=== PATIENT | female | born 1995 | race Caucasian/White ===

== ENCOUNTER 2021-02-06 10:24 | Inpatient (IN) | payer MEDICARE, MEDICAID ==
[2021-02-06] VITALS (9 sets, daily range): BP systolic 93–126; BP diastolic 45–98
[~2021-02-06] VITALS: Ht 144.8 cm; Wt 86.4 kg
[2021-02-06] MEDS ORDERED: DOCU-163 PO (11:07)
[2021-02-06] MEDS ORDERED: ONDN4T PO (11:07)
[2021-02-06] MEDS ORDERED: PREN-37 PO (11:07)
[2021-02-06] MEDS ORDERED: TERBUTALINE INJ 1 MG/ML (BRETHINE) AMP SC ONE (12:00)
[2021-02-06] MEDS ORDERED: TERBUTALINE INJ 1 MG/ML (BRETHINE) AMP ONE (12:09)
[2021-02-06] MEDS ORDERED: OXYTOCIN PRE-MIX DRIP 1,000 ML IV ONE (12:32)
[2021-02-06] MEDS ORDERED: fentaNYL INJ 100 MCG/2 ML AMP ONE (12:33)
[2021-02-06] MEDS ORDERED: FAMOTIDINE 20MG/2ML IV (PEPCID) ONE (12:35)
[2021-02-06] MEDS ORDERED: CITRIC ACID/SOB CIT (BICITRA) 30 ML UDC ONE (12:35)
[2021-02-06] MEDS ORDERED: METOCLOPRAMIDE INJ 10 MG/2 ML (REGLAN) ONE (12:35)
[2021-02-06] MEDS ORDERED: ceFAZolin 2 GM IV Premixed 50 ML ONE (12:36)
[2021-02-06] MEDS ORDERED: metroNIDAZOLE 500MG/100ML IVPB 100 ML ONE (12:36)
--- NOTE | 2021-02-06 12:38 | History & Physical-OB ---
OB - Chief Complaint & HPI Date/Time Date of Admission: Date of Admission: Feb 06, 2021 at 12:31 Date seen by a Provider: Feb 06, 2021 Time Seen by a Provider: 12:15 Chief Complaint/History OB-Reason for Admission/Chief: Onset of Labor Hx : 3 Hx Para: 2 Expected Date of Delivery: Feb 18, 2021 Gestational Age in Weeks: 38 Gestational Age in Days: 2 Indication for : other (Previous section in labor) Admission Nurse Assessment Rev: Yes History of Labs Negative Allergies and Home Medications Allergies Coded Allergies: No Known Drug Allergies (Unverified , 02/06/21) Patient Home Medication List Home Medication List Reviewed: Yes Docusate Sodium (Dulcolax Stool Softener) 100 Mg Capsule, 100 MG PO DAILY, (Reported) Entered as Reported by: OMAR HARP on 02/06/211106 Last Action: New Order Ondansetron HCl (Zofran) 4 Mg Tab, 4 MG PO for NAUSEA-1ST LINE, (Reported) Entered as Reported by: OMAR HARP on 02/06/211106 Last Action: New Order Vit/Iron Fumarate/FA ( Tablet) 1 Each Tablet, 1 EACH PO DAILY, (Reported) Entered as Reported by: OMAR HARP on 02/06/211106 Last Action: New Order OB - History Hx of Present Care: Yes Ultrasounds: Normal mid trimester US Obstetrical Complications: None Medical Complications: None Obstetrical History Hx : 3 Hx Para: 2 Hx Total # of Abortions (Spona: 0 Patient Past Medical History 2 previous sections 2014 2018 Social History/Family History Alcohol Use: Denies Use Recreational Drug Use: No OB - Admission Exam Physical Exam Vitals: Vital Signs 02/06/21 11:09 Temp 36.5 Pulse 79 Resp 20 Pulse Ox 99 O2 Delivery Room Air HEENT: Moist Membranes Heart: Rhythm Normal Lungs: Clear Cervical Dilatation: 1cm Effacement: 50% Station: -3 Membranes: Intact Accelerations: Accelerations Present Short Term Variability: Present Contractions on Admission: >10 Minutes Apart Intensity: Moderate OB - Assessment/Plan/Diagnosis Assessment Assessment: active labor (With history of previous section) Admission Dx 1. Intrauterine at 38 weeks 2 days gestation in labor 2. Previous section x2 Admission Status: Inpatient Order (span 2 midnights) Reason for Inpatient Admission: Repeat section Plan Plan: Section Other Plan Dr. Treviño notified as well the surgery crew. -Plan on repeat during the afternoon of February 06, 2021 RICCO ORTEGA MD Feb 06, 2021 12:38
[2021-02-06 12:42] LABS: BASOPHILS % (AUTO) 0 % (0-10); EOSINOPHILS % (AUTO) 0 % (0-10); HEMATOCRIT 38 % (35-52); HEMOGLOBIN 12.8 g/dL (11.5-16.0); LYMPHOCYTES # (AUTO) 3.2 10^3/uL (1.0-4.0); LYMPHOCYTES % (AUTO) 23 % (12-44); MEAN CORPUSCULAR HEMOGLOBIN 28 pg (25-34); MEAN CORPUSCULAR HGB CONC 33 g/dL (32-36); MEAN CORPUSCULAR VOLUME 85 fL (80-99); MEAN PLATELET VOLUME 10.4 fL (9.0-12.2); MONOCYTES # (AUTO) 0.5 10^3/uL (0.0-1.0); MONOCYTES % (AUTO) 3 % (0-12); NEUTROPHILS # (AUTO) 10.1 10^3/uL (1.8-7.8); NEUTROPHILS % (AUTO) 73 % (42-75); PLATELET COUNT 259 10^3/uL (130-400); WHITE BLOOD COUNT 13.9 10^3/uL (4.3-11.0)
[2021-02-06] MEDS ORDERED: BUPIVACAINE 0.25% 30 ML (SENSORCAINE) VIAL ONE (12:43)
[2021-02-06] MEDS ORDERED: LACTATED RINGERS 1,000 ML IV PRN (13:30)
[2021-02-06] MEDS ORDERED: ONDANSETRON 4 MG/2 ML (SDV) Z0FRAN ONE (13:30)
[2021-02-06] MEDS ORDERED: KETOROLAC 30 MG/ML VIAL ONE (13:50)
[2021-02-06] MEDS ORDERED: D5 LR IV SOLUTION 1,000 ML IV SCH (14:00)
[2021-02-06] MEDS ORDERED: TETANUS,DIPTH,PERTUSS P/F (BOOSTRIX) 0.5 ML VIAL IM ONE (14:00)
[2021-02-06] MEDS ORDERED: MEASLES,MUMPS,RUBELLA 1 EA INJ SC ONE (14:00)
[2021-02-06] MEDS ORDERED: DOCU-143 PO (14:04)
[2021-02-06] MEDS ORDERED: IBUP-1780 PO (14:04)
--- NOTE | 2021-02-06 14:05 | Discharge Inst-Surgical ---
Discharge Inst-Surgical Depart Medication/Instructions New, Converted or Re-Newed RX: Call to Patients Pharmacy Consults/Follow Up Patient Instructions: As directed Orders & Referrals Follow Up Appt: RTC 1 week for incision check With Dr. Treviño. Call to make follow up appt. for patient in [address] Paz. Wound Care: Remove pat, apply benzoin and steri strips. Activity Per routine post instructions. Please call in RX to patient pharmacy. Diet as tolerated Patient may shower or tub bathe as desired. Continue home meds Activity Activity as Tolerated: No Diet Discharge Diet: No Restrictions EVANGELINA TREVIÑO MD Feb 06, 2021 14:05
[2021-02-06] MEDS ORDERED: LACTATED RINGERS 1,000 ML IV SCH ×2 (14:30)
[2021-02-06] MEDS ORDERED: CITRIC ACID/SOB CIT (BICITRA) 30 ML UDC PO ONE (14:30)
[2021-02-06] MEDS ORDERED: NALOXONE 0.4 MG/ML 1 ML (NARCAN) VIAL IV PRN ×2 (14:30)
[2021-02-06] MEDS ORDERED: METOCLOPRAMIDE INJ 10 MG/2 ML (REGLAN) IV ONE (14:30)
[2021-02-06] MEDS ORDERED: METOCLOPRAMIDE INJ 10 MG/2 ML (REGLAN) IV PRN (14:30)
[2021-02-06] MEDS ORDERED: diphenhydrAMINE 50 MG/ML INJ (BENADRYL) IV PRN (14:30)
[2021-02-06] MEDS ORDERED: ONDANSETRON 4 MG/2 ML (SDV) Z0FRAN IV PRN (14:30)
[2021-02-06] MEDS ORDERED: FAMOTIDINE 20MG/2ML IV (PEPCID) IV ONE (14:30)
[2021-02-06] MEDS: OXYTOCIN PRE-MIX DRIP 500 ML IV SCH ×2 (15:14→18:00)
[2021-02-06] MEDS: ACETAMINOPHEN 500 MG TAB (TYLENOL) PO SCH ×2 (17:21→23:11)
[2021-02-06] MEDS ORDERED: KETOROLAC 30 MG/ML VIAL IV SCH (18:00)
[2021-02-06] MEDS: DOCUSATE SODIUM 100 MG (COLACE) CAP PO SCH (20:53)
--- NOTE | 2021-02-06 21:53 | OPERATIVE REPORT ---
DATE OF SERVICE: 02/06/2021 DIRECTOR OF ELEMENTARY EDUCATION: Dr. Paz. PREOPERATIVE DIAGNOSIS: Term at 38 weeks' gestation in labor with two previous sections. POSTOPERATIVE DIAGNOSIS: Term at 38 weeks' gestation in labor with two previous sections. OPERATIVE PROCEDURE: Repeat low transverse delivery of a viable male with Apgars of 8 and 9 at 1 and 5 minutes respectively, weight of 5 pounds 10 ounces. time of 1325 and a cord blood pH of 7.29. OPERATIVE DESCRIPTION: With the patient in the supine position under satisfactory spinal analgesia, she was prepped and draped in the usual fashion for abdominal surgery. The patient had a large panniculus that was retracted by placing towel clips in the upper portion of the lower quadrant on each side and then attaching that to the posts at the top of the bed to retract the panniculus and expose the lower abdomen. With that done, a Pfannenstiel incision was made through the skin with a scalpel at the site of the patient's previous two Pfannenstiel incisional scars. The abdomen was entered in the usual manner. Bladder retractor placed in position. A clean scalpel used to make a 4 cm hysterotomy incision transversely across the lower uterine segment. Very scant fluid was released on hysterotomy. A vigorous viable male infant with Apgars and stats as noted above was delivered via the uterine incision in the usual manner. The was bulb suctioned on delivery of the head and again on completion of delivery. Umbilical cord was doubly clamped, and the taken to the warmer by Dr. Paz, the book retailer in attendance for delivery. The placenta was delivered spontaneously after obtaining cord bloods. The placenta was normal with a 3-vessel cord. The uterus was exteriorized and interior wiped clean with a wet laparotomy sponge. Uterine incision then closed with a running locked suture of 2-0 Vicryl. This was done in two layers to good hemostasis and good reapproximation. The uterus was now returned to the abdominal cavity. All blood clot and debris removed from the abdominal cavity. With sponge and needle counts correct and hemostasis assured, the anterior parietal peritoneum was closed with running suture of 2-0 Vicryl. Rectus muscles were closed with that suture as well. The rectus fascia was closed with 2-0 Vicryl, subcutaneous tissue was closed with 2-0 Vicryl and the skin was stapled. Sponge and needle counts were correct on completion of the procedure. Blood loss was around 300 mL. The patient tolerated the procedure well and was transferred to the recovery room in stable condition. The had been taken stable to the full-term nursery by Dr. Paz. Job ID: [id number] DocumentID: [id number] Dictated Date: 02/06/2021 13:55:03 Child And Family Services Worker Date: 02/06/2021 21:52:41 Dictated By: EVANGELINA LINARES MD
[2021-02-06] MEDS ORDERED: CALCIUM CARBONATE 500 MG (TUMS) TAB.CHEW ONE (23:10)
[2021-02-06] MEDS ORDERED: CALCIUM CARBONATE 500 MG (TUMS) TAB.CHEW PO PRN (23:15)
[2021-02-07] MEDS ORDERED: IBUPROFEN 800 MG (MOTRIN) TAB PO ONE ×2 (03:58→09:30)
[2021-02-07 04:00] VITALS: BP 104/59
[2021-02-07] MEDS: IBUPROFEN 800 MG (MOTRIN) TAB PO SCH ×3 (04:00→17:38)
[2021-02-07] MEDS: ACETAMINOPHEN 500 MG TAB (TYLENOL) PO SCH ×3 (06:36→20:45)
--- NOTE | 2021-02-07 09:06 | Progress Note ---
Standard Progress Note Progress Notes/Assess & Plan Date Seen by a Provider: Feb 07, 2021 Time Seen by a Provider: 09:05 Progress/Assessment & Plan This patient is without complaint. She is ambulating, voiding, tolerating oral intake well and has good pain control. Patient denies chest pain, denies shortness of breath, denies nausea vomiting, and denies headache. Vital Signs 02/06/21 02/07/21 14:56 04:00 Temp 36.0 Pulse 50 Resp 18 B/P (MAP) 104/59 (74) Pulse Ox 98 O2 Delivery Room Air O2 Flow Rate 0.00 Vital signs are stable. Patient is afebrile. The abdomen is benign. The surgical incision is clean dry and intact. Extremities show no clubbing or cyanosis. There is no Homans' sign. Assessment and plan Postoperative day #1 status post repeat delivery at 38 weeks gestation. Patient is doing well and will have routine convalescent care Final Diagnosis 38-week repeat delivery EVANGELINA LINARES MD Feb 07, 2021 09:06
[2021-02-07] MEDS ORDERED: OXC5T PO (09:08)
[2021-02-07] MEDS ORDERED: DOCU-163 PO (09:08)
[2021-02-07] MEDS ORDERED: IBUP-1780 PO (09:08)
[2021-02-07 09:27] VITALS: BP 95/56
[2021-02-07] MEDS: DOCUSATE SODIUM 100 MG (COLACE) CAP PO SCH ×2 (09:31→20:45)
[2021-02-07 10:47] LABS: AMPHETAMINE SCREEN, URINE NEGATIVE (NEGATIVE); BARBITURATE SCREEN URINE NEGATIVE (NEGATIVE); BENZODIAZEPINES SCREEN URINE NEGATIVE (NEGATIVE); CANNABINOID SCREEN, URINE POSITIVE (NEGATIVE); COCAINE SCREEN URINE NEGATIVE (NEGATIVE); METHADONE STAT NEGATIVE (NEGATIVE); METHAMPHETAMINE SCREEN URINE S NEGATIVE (NEGATIVE); OPIATE SCREEN URINE NEGATIVE (NEGATIVE); OXYCODONE STAT POSITIVE (NEGATIVE); PROPOXYPHENE STAT NEGATIVE (NEGATIVE); TRICYCLIC ANTIDEPRESSANTS SCRE NEGATIVE (NEGATIVE)
--- NOTE | 2021-02-07 13:00 | Anesthesia-Regional Post-Op ---
Regional Patient Condition Mental Status: Alert, Oriented x3 Circulation: Same as Pre-Op Headache: Absent Sensation: Full Recovery Motor Block: Absent Post Op Complications Complications None Follow Up Care/Instructions Patient Instructions None needed. Anesthesia/Patient Condition Patient is doing well, no complaints, stable vital signs, no apparent adverse anesthesia problems. No complications reported per nursing. JAMISON ARRIAZA CRNA Feb 07, 2021 13:00
[2021-02-07 13:12] VITALS: BP 122/80
[2021-02-07] MEDS ORDERED: SIMETHICONE 40 MG/0.6 ML (MYLICON DROPS) 30 ML BTL PO PRN (16:15)
[2021-02-07] MEDS ORDERED: SIMETHICONE 80 MG (MYLICON) CHEW PO PRN (16:15)
[2021-02-07 17:40] VITALS: BP 145/84
[2021-02-08 00:10] VITALS: BP 115/73
[2021-02-08] MEDS: IBUPROFEN 800 MG (MOTRIN) TAB PO SCH ×3 (01:07→13:33)
[2021-02-08] MEDS: ACETAMINOPHEN 500 MG TAB (TYLENOL) PO SCH ×2 (03:39→13:33)
[2021-02-08 06:30] VITALS: BP 122/70
[2021-02-08 09:08] VITALS: BP 125/72
[2021-02-08] MEDS: DOCUSATE SODIUM 100 MG (COLACE) CAP PO SCH (09:09)
== END 2021-02-08 18:40 | disposition home or self-care (01) | DRG 788 ==
LOC: WSo 10:24 → LDRP 10:25 → WSo 12:31 → LDRP 12:31
PROVIDERS: ADMIT Obstetrics & Gynecology; ATTEND Obstetrics & Gynecology
PROC: 10D00Z1 Extraction of Products of Conception, Low, Open Approach (ICD-10-PCS; principal; 2021-02-06 13:03)
DX: O34.211 Maternal care for low transverse scar from previous cesarean delivery (principal); Z3A.38 38 weeks gestation of pregnancy; Z37.0 Single live birth
CPT/HCPCS: 36415; 80306; 85025; 86850; 86900; 86901; 99212

== ENCOUNTER → 2022-05-06 | Outpatient (CLI) | payer MEDICARE, MEDICAID ==
[~2022-05-06] MED LIST: DOCU-143 PO; DOCU-163 PO; IBUP-1780 PO; ONDN4T PO; OXC5T PO; PREN-37 PO
== END | disposition home or self-care (01) ==
LOC: PREOP 05:31
PROVIDERS: ATTEND Obstetrics & Gynecology
DX: Z01.818 Encounter for other preprocedural examination (principal)

== ENCOUNTER 2022-05-09 23:47 | Outpatient (CLI) | payer MEDICARE, MEDICAID ==
[~2022-05-09] VITALS: Ht 152.4 cm; Wt 86.1 kg
[2022-05-10] VITALS: BP 125/68
[2022-05-10 00:46] LABS: CLARITY,URINE CLOUDY; COLOR,URINE DARK YELLOW; GLUCOSE, URINE (UA) NEGATIVE (NEGATIVE); KETONES,URINE NEGATIVE (NEGATIVE); LEUKOCYTE ESTERASE ,URINE NEGATIVE (NEGATIVE); NITRITE,URINE NEGATIVE (NEGATIVE); PROTEIN,URINE TRACE (NEGATIVE)
[2022-05-10 01:01] LABS: BACTERIA,URINE TRACE /HPF; RBC,URINE RARE /HPF; WBC,URINE RARE /HPF
[2022-05-10 01:02] LABS: BILIRUBIN,URINE 1+ (NEGATIVE)
[2022-05-10] MEDS ORDERED: NS IV 1000 ML 1,000 ML ONE (01:29)
[2022-05-10] MEDS ORDERED: NS IV 1000 ML 1,000 ML IV SCH (01:30)
[2022-05-10] MEDS ORDERED: CALCIUM CARBONATE 500 MG (TUMS) TAB.CHEW PO ONE (01:30)
[2022-05-10] MEDS ORDERED: ONDANSETRON 4 MG/2 ML (SDV) Z0FRAN ONE (01:40)
[2022-05-10 02:25] LABS: BASOPHILS % (AUTO) 0 % (0-10); EOSINOPHILS % (AUTO) 0 % (0-10); HEMATOCRIT 34 % (35-52); HEMOGLOBIN 11.1 g/dL (11.5-16.0); LYMPHOCYTES # (AUTO) 2.5 10^3/uL (1.0-4.0); LYMPHOCYTES % (AUTO) 19 % (12-44); MEAN CORPUSCULAR HEMOGLOBIN 27 pg (25-34); MEAN CORPUSCULAR HGB CONC 33 g/dL (32-36); MEAN CORPUSCULAR VOLUME 83 fL (80-99); MONOCYTES # (AUTO) 0.5 10^3/uL (0.0-1.0); MONOCYTES % (AUTO) 4 % (0-12); NEUTROPHILS # (AUTO) 9.8 10^3/uL (1.8-7.8); NEUTROPHILS % (AUTO) 76 % (42-75); PLATELET COUNT 233 10^3/uL (130-400); WHITE BLOOD COUNT 12.8 10^3/uL (4.3-11.0)
[2022-05-10 02:38] LABS: ALBUMIN 2.7 GM/DL (3.2-4.5); BILIRUBIN,TOTAL 0.3 MG/DL (0.1-1.0); CALCIUM 7.8 MG/DL (8.5-10.1); CREATININE SERUM 0.62 MG/DL (0.60-1.30); POTASSIUM 3.3 MMOL/L (3.6-5.0); TOTAL PROTEIN 5.6 GM/DL (6.4-8.2); URIC ACID 5.1 MG/DL (2.6-7.2)
[2022-05-10] MEDS ORDERED: D5 LR IV SOLUTION 1,000 ML IV ONE (03:13)
[2022-05-10] MEDS ORDERED: FAMOTIDINE 20MG/2ML IV (PEPCID) IVP ONE (03:15)
[2022-05-10] MEDS ORDERED: ONDANSETRON 4 MG/2 ML (SDV) Z0FRAN IVP PRN (03:15)
[2022-05-10] MEDS ORDERED: CITRIC ACID/SOB CIT (BICITRA) 30 ML UDC PO ONE (03:15)
[2022-05-10] MEDS ORDERED: BUTORPHANOL INJ 2 MG/ML (STADOL) VIAL IV ONE (03:15)
[2022-05-10] MEDS ORDERED: D5 LR IV SOLUTION 1,000 ML IV SCH (03:15)
[2022-05-10] MEDS ORDERED: oxyCODONE/APAP 5/325MG (PERCOCET 5) TABLET PO ONE (04:45)
[2022-05-10 05:45] VITALS: BP_SYST 128
--- NOTE | 2022-05-11 08:43 | Physician Query-Final Dx ---
05/11/22 0843: Clinic Account Progress/Dx Physician Query: Please give diagnosis Please include # weeks gestation Date of Service May 09, 2022 at 23:47 EVANGELINA LINARES MD 05/11/22 0849: Clinic Account Progress/Dx DIAGNOSIS: Diagnosis False labor at 36 weeks gestation May 11, 2022 08:43 EVANGELINA LINARES MD May 11, 2022 08:49
[2022-05-13] MEDS ORDERED: DOCU100C37 PO (06:58)
[2022-05-13] MEDS ORDERED: IBUP-1780 PO (06:58)
[2022-05-13] MEDS ORDERED: OXYC1TAB12 PO (06:58)
== END 2022-05-10 05:45 ==
LOC: LDRP 23:47 → WSo 23:47
PROVIDERS: ATTEND Obstetrics & Gynecology
DX: O62.9 Abnormality of forces of labor, unspecified (principal); Z3A.36 36 weeks gestation of pregnancy
CPT/HCPCS: 36415; 80053; 81000; 82570; 83615; 84156; 84550; 85025; 96361; 96374; 96375; 99214

== ENCOUNTER 2022-05-11 10:37 | Inpatient (IN) | payer MEDICARE, MEDICAID ==
[~2022-05-11] VITALS: Ht 144.8 cm; Wt 84.4 kg
[2022-05-11] VITALS (14 sets, daily range): BP systolic 101–143; BP diastolic 65–98
[2022-05-11] MEDS: LACTATED RINGERS 1,000 ML IV PRN ×2 (10:40→11:35)
[2022-05-11] MEDS ORDERED: METOCLOPRAMIDE INJ 10 MG/2 ML (REGLAN) IV ONE (11:15)
[2022-05-11] MEDS ORDERED: ceFAZolin INJECTION 2,000 MG in NS (IVPB) 50 ML IV ONE (11:15)
[2022-05-11] MEDS ORDERED: FAMOTIDINE 20MG/2ML IV (PEPCID) IV ONE (11:15)
[2022-05-11] MEDS ORDERED: LACTATED RINGERS 1,000 ML IV PRN (11:15)
[2022-05-11] MEDS ORDERED: metroNIDAZOLE 500MG/100ML IVPB 100 ML IV ONE (11:15)
[2022-05-11] MEDS ORDERED: CATHETER FLUSH 10 ML SYR IV PRN (11:15)
[2022-05-11] MEDS ORDERED: CITRIC ACID/SOB CIT (BICITRA) 30 ML UDC PO ONE (11:15)
[2022-05-11] MEDS ORDERED: ONDANSETRON 4 MG/2 ML (SDV) Z0FRAN ONE (11:21)
[2022-05-11] MEDS ORDERED: fentaNYL INJ 100 MCG/2 ML AMP ONE (11:21)
[2022-05-11] MEDS ORDERED: OXYTOCIN PRE-MIX DRIP 500 ML IV ONE (11:29)
[2022-05-11 11:34] LABS: BASOPHILS % (AUTO) 0 % (0-10); EOSINOPHILS # (AUTO) 0.1 10^3/uL (0.0-0.3); EOSINOPHILS % (AUTO) 1 % (0-10); HEMATOCRIT 37 % (35-52); HEMOGLOBIN 12.2 g/dL (11.5-16.0); LYMPHOCYTES # (AUTO) 3.5 10^3/uL (1.0-4.0); LYMPHOCYTES % (AUTO) 27 % (12-44); MEAN CORPUSCULAR HEMOGLOBIN 28 pg (25-34); MEAN CORPUSCULAR HGB CONC 33 g/dL (32-36); MEAN CORPUSCULAR VOLUME 83 fL (80-99); MEAN PLATELET VOLUME 11.3 fL (9.0-12.2); MONOCYTES # (AUTO) 0.5 10^3/uL (0.0-1.0); MONOCYTES % (AUTO) 4 % (0-12); NEUTROPHILS # (AUTO) 8.8 10^3/uL (1.8-7.8); NEUTROPHILS % (AUTO) 68 % (42-75); PLATELET COUNT 269 10^3/uL (130-400); WHITE BLOOD COUNT 12.8 10^3/uL (4.3-11.0)
[2022-05-11] MEDS ORDERED: BUPIVACAINE 0.5% 30 ML (SENSORCAINE) VIAL ONE (12:07)
[2022-05-11] MEDS: OXYTOCIN PRE-MIX DRIP 500 ML IV SCH ×2 (12:18→15:36)
[2022-05-11] MEDS ORDERED: D5 LR IV SOLUTION 1,000 ML IV SCH (12:30)
[2022-05-11] MEDS ORDERED: TETANUS,DIPTH,PERTUSS P/F (BOOSTRIX) 0.5 ML VIAL IM ONE (12:30)
[2022-05-11] MEDS: KETOROLAC 30 MG/ML VIAL IV SCH ×2 (12:52→19:42)
[2022-05-11] MEDS: oxyCODONE/APAP 10/325MG (PERCOCET 10) TABLET PO PRN ×2 (14:56→21:21)
[2022-05-11] MEDS ORDERED: PROMETHAZINE INJ 25 MG/ML (PHENERGAN) AMP IM ONE (17:45)
[2022-05-11] MEDS ORDERED: MEPERIDINE (DEMEROL) INJ 100 MG/ML IM ONE (17:45)
[2022-05-11] MEDS: DOCUSATE SODIUM 100 MG (COLACE) CAP PO SCH (21:21)
--- NOTE | 2022-05-11 23:32 | OPERATIVE REPORT ---
DATE OF SERVICE: 05/11/2022 BOIL OFF WORKER: Dr. Paz PREOPERATIVE DIAGNOSIS: A 36+ week twin with spontaneous rupture of membranes and early labor. POSTOPERATIVE DIAGNOSIS: A 36+ week twin with spontaneous rupture of membranes and early labor. PROCEDURE: Repeat low transverse delivery of a viable male twins. INDICATIONS: Twin A, MALE, had Apgars of 8 and 9, weight of 4 pounds 10 ounces. Cord blood pH of 7.38. time of 11:56. Twin B also male, also Apgars of 8 and 9, weight of 4 pounds 8 ounces. time of 11:57 and a cord blood pH that was reported is 7.53. DESCRIPTION OF PROCEDURE: With the patient in supine position, under satisfactory spinal analgesia, she was prepped and draped in the usual fashion for abdominal surgery. She had a large panniculus that was elevated with towel clips placed in the right and left sides in the area that had been prepped and then attached distentions at the top of the bed to retract the panniculus. A repeat Pfannenstiel incision was made through the skin with a scalpel. The patient's abdomen was entered in the usual manner. Bladder retractor placed into position and the uterus exposed. A 4 cm incision was made transversely across the uterine segment that was extended bluntly. A pair of feet were present at the incision. They were grasped and brought out through the incision and then the membranes were ruptured. Breech extraction was performed with delivery of baby A with Apgars and stats as noted above. Baby B was delivered from a vertex presentation by elevating the head out of the pelvis and delivering in the usual manner. Baby B had stats and Apgars as noted above. Each baby was bulb suctioned on delivery. The umbilical cord was doubly clamped and baby A was passed off to the medical laboratory specialist in attendance for delivery. Baby B was taken by Dr. Paz the medical laboratory specialist in attendance for delivery as well to the warmer. With both babies delivered, cord bloods were obtained and then the placental mass was delivered mostly spontaneously. It was sent to pathology for permanent section. The uterus was exteriorized and the interior wiped clean with a wet laparotomy sponge. Uterine incision closed with a running locked suture of 2-0 Vicryl. Hemostasis was complete. The uterus was returned to the abdominal cavity. All blood clot and debris removed from the abdominal cavity. Sponge and needle counts were correct. Hemostasis assured. Anterior parietoperitoneum was closed with running suture of 2-0 Vicryl. Rectus muscles were closed with that suture. Rectus fascia was closed with 2-0 Vicryl. Subcutaneous tissue was closed with 2-0 Vicryl and the skin was stapled. Sponge and needle counts were correct on completion of the procedure. Blood loss was reported as 350 mL for the delivery. Sponge and needle counts were correct on completion of the procedure. The patient was transferred to the recovery room. The babies had been taken stable to the full term nursery. Job ID: [id number] DocumentID: [id number] Dictated Date: 05/11/2022 12:41:16 Manager Shell Date: 05/11/2022 20:30:00 Dictated By: EVANGELINA LINARES MD MTDD
[2022-05-12] MEDS ORDERED: IBUPROFEN 800 MG (MOTRIN) TAB PO ONE ×2 (01:13→08:23)
[2022-05-12 01:16] VITALS: BP 125/60
[2022-05-12] MEDS: IBUPROFEN 800 MG (MOTRIN) TAB PO SCH ×4 (01:16→18:06)
[2022-05-12 04:11] VITALS: BP 106/56
[2022-05-12] MEDS: oxyCODONE/APAP 10/325MG (PERCOCET 10) TABLET PO PRN ×3 (04:52→18:05)
--- NOTE | 2022-05-12 07:55 | Progress Note ---
Standard Progress Note Progress Notes/Assess & Plan Date Seen by a Provider: May 12, 2022 Time Seen by a Provider: 07:54 Progress/Assessment & Plan This patient is without complaint. She is ambulating, voiding, tolerating oral intake and has good pain control. Vital Signs Date Time Temp Pulse Resp B/P (MAP) Pulse Ox O2 Delivery O2 Flow Rate FiO2 05/12/22 04:11 36.1 56 18 106/56 (73) 94 Room Air 05/12/22 01:16 36.1 52 18 125/60 (81) 94 Room Air 05/11/22 19:52 36.4 53 18 110/80 (90) 96 Room Air 05/11/22 16:02 36.4 72 18 125/72 (89) 99 Room Air 05/11/22 13:45 36.2 58 16 115/81 (92) 99 Room Air 05/11/22 13:15 Room Air 05/11/22 13:10 36.5 18 109/66 (80) 97 Room Air 05/11/22 13:00 16 104/84 (91) 97 Room Air 05/11/22 12:55 Room Air 05/11/22 12:50 20 101/82 (88) 95 Room Air 05/11/22 12:40 16 120/65 (83) 93 Room Air 05/11/22 12:40 Room Air 05/11/22 12:30 16 114/70 (85) 93 Room Air 05/11/22 12:24 Room Air 05/11/22 12:24 36.4 16 116/73 (87) 94 Room Air 05/11/22 11:20 78 143/94 (110) Room Air 05/11/22 11:05 90 137/94 (108) Room Air 05/11/22 10:50 80 138/83 (101) Room Air 05/11/22 10:40 36.8 83 18 97 Room Air 05/11/22 10:30 83 18 132/98 (109) 97 Room Air I & O 05/12/22 07:00 Intake Total 4380 ml Output Total 750 ml Balance 3630 ml Vital signs are stable. Patient is afebrile. The abdomen is benign. The surgical incision is clean dry and intact. Fundus is firm below the umbilicus and nontender. Extremities show no clubbing or cyanosis. There is no Homans' sign. Assessment and plan Postoperative day #1 status post repeat delivery for twins at 36+ weeks due to rupture membranes and labor and previous . Patient is doing well and babies are doing well with small. Plan is for routine convalescent care EVANGELINA LINARES MD May 12, 2022 07:55
[2022-05-12 08:30] VITALS: BP 103/58
[2022-05-12] MEDS: DOCUSATE SODIUM 100 MG (COLACE) CAP PO SCH ×2 (08:31→20:34)
[2022-05-12] MEDS ORDERED: FLU QUADRIvalent (6 months+) 60 mcg/0.5 ml 2022-23 (Fluzone) IM ONE (11:15)
[2022-05-12] MEDS ORDERED: MEASLES,MUMPS,RUBELLA 1 EA INJ SC ONE (12:00)
[2022-05-12 13:00] VITALS: BP 121/77
--- NOTE | 2022-05-12 15:10 | Anesthesia-Regional Post-Op ---
Regional Patient Condition Mental Status: Alert, Oriented x3 Circulation: Same as Pre-Op Headache: Absent Sensation: Full Recovery Motor Block: Absent Post Op Complications Complications None Follow Up Care/Instructions Patient Instructions None needed. Anesthesia/Patient Condition Patient is doing well, no complaints, stable vital signs, no apparent adverse anesthesia problems. No complications reported per nursing. JAMISON ARRIAZA CRNA May 12, 2022 15:10
[2022-05-12 20:00] VITALS: BP 112/62
[2022-05-12 20:30] VITALS: BP 119/73
[2022-05-13] MEDS: IBUPROFEN 800 MG (MOTRIN) TAB PO SCH ×2 (00:31→06:07)
[2022-05-13] MEDS: oxyCODONE/APAP 10/325MG (PERCOCET 10) TABLET PO PRN (02:58)
[2022-05-13 03:00] VITALS: BP 147/67
--- NOTE | 2022-05-13 06:57 | Progress Note ---
Standard Progress Note Progress Notes/Assess & Plan Date Seen by a Provider: May 13, 2022 Time Seen by a Provider: 06:55 Progress/Assessment & Plan This patient is without complaint. She is ambulating, voiding, tolerating oral intake and has good pain control. Vital Signs Date Time Temp Pulse Resp B/P (MAP) Pulse Ox O2 Delivery O2 Flow Rate FiO2 05/12/22 04:11 36.1 56 18 106/56 (73) 94 Room Air 05/12/22 01:16 36.1 52 18 125/60 (81) 94 Room Air 05/11/22 19:52 36.4 53 18 110/80 (90) 96 Room Air 05/11/22 16:02 36.4 72 18 125/72 (89) 99 Room Air 05/11/22 13:45 36.2 58 16 115/81 (92) 99 Room Air 05/11/22 13:15 Room Air 05/11/22 13:10 36.5 18 109/66 (80) 97 Room Air 05/11/22 13:00 16 104/84 (91) 97 Room Air 05/11/22 12:55 Room Air 05/11/22 12:50 20 101/82 (88) 95 Room Air 05/11/22 12:40 16 120/65 (83) 93 Room Air 05/11/22 12:40 Room Air 05/11/22 12:30 16 114/70 (85) 93 Room Air 05/11/22 12:24 Room Air 05/11/22 12:24 36.4 16 116/73 (87) 94 Room Air 05/11/22 11:20 78 143/94 (110) Room Air 05/11/22 11:05 90 137/94 (108) Room Air 05/11/22 10:50 80 138/83 (101) Room Air 05/11/22 10:40 36.8 83 18 97 Room Air 05/11/22 10:30 83 18 132/98 (109) 97 Room Air I & O 05/12/22 07:00 Intake Total 4380 ml Output Total 750 ml Balance 3630 ml Vital signs are stable. Patient is afebrile. The abdomen is benign. The surgical incision is clean dry and intact. Fundus is firm below the umbilicus and nontender. Extremities show no clubbing or cyanosis. There is no Homans' sign. Assessment and plan Postoperative day #1 status post repeat delivery for twins at 36+ weeks due to rupture membranes and labor and previous . Patient is doing well and babies are doing well with small. Plan is for routine convalescent care May 13, 2022 Patient is without pain. She is ambulating, voiding, tolerating oral intake well and has good pain control. Patient is requesting discharge home. Vital Signs Date Time Temp Pulse Resp B/P (MAP) Pulse Ox O2 Delivery O2 Flow Rate FiO2 05/13/22 03:00 36.2 81 18 147/67 (93) 93 Room Air 05/12/22 20:30 96 Room Air 05/12/22 20:30 36.5 76 20 119/73 (88) 96 Room Air 05/12/22 13:00 36.4 65 18 121/77 (92) 96 Room Air 05/12/22 09:30 Room Air 05/12/22 08:30 36.4 57 18 103/58 (73) 95 Room Air Vital signs are stable. Patient is afebrile. The abdomen is benign. The fundus is firm below the umbilicus and nontender. The surgical incision is clean dry and intact. Extremities show no clubbing or cyanosis. There is no Homans' sign. Assessment and plan Post operative day #2 status post repeat delivery at 36+ weeks gestation for twins. Patient is doing well and will be discharged home Final Diagnosis 36-week repeat delivery EVANGELINA LINARES MD May 13, 2022 06:57
[2022-05-13] MEDS ORDERED: DOCU100C37 PO (06:58)
[2022-05-13] MEDS ORDERED: OXYC1TAB12 PO (06:58)
[2022-05-13] MEDS ORDERED: IBUP-1780 PO (06:58)
--- NOTE | 2022-05-13 07:00 | Discharge Inst-Surgical ---
Discharge Inst-Surgical Depart Medication/Instructions New, Converted or Re-Newed RX: Transmitted to Pharmacy Consults/Follow Up Orders & Referrals Follow Up Appt: RTC 1 week for incision check With Dr. Treviño Call to make follow up appt. for patient in [address] Schaffer. Wound Care: Remove pat, apply benzoin and steri strips. Activity Per routine post instructions. Prescriptions for Percocet Motrin and Colace have been transmitted to chronically to patient's pharmacy Diet as tolerated Patient may shower or tub bathe as desired. Continue home meds Activity Activity as Tolerated: No Diet Discharge Diet: No Restrictions EVANGELINA TREVIÑO MD May 13, 2022 06:59
[2022-05-13 08:15] VITALS: BP 146/73
[2022-05-13] MEDS: DOCUSATE SODIUM 100 MG (COLACE) CAP PO SCH (08:26)
== END 2022-05-13 10:30 | disposition home or self-care (01) | DRG 786 ==
LOC: LDRP 10:37
PROVIDERS: ADMIT Obstetrics & Gynecology; ATTEND Obstetrics & Gynecology
PROC: 10D00Z1 Extraction of Products of Conception, Low, Open Approach (ICD-10-PCS; principal; 2022-05-11 11:35)
DX: O34.211 Maternal care for low transverse scar from previous cesarean delivery (principal); O60.14X0 Preterm labor third trimester with preterm delivery third trimester, not applicable or unspecified; Z3A.36 36 weeks gestation of pregnancy; O30.013 Twin pregnancy, monochorionic/monoamniotic, third trimester; Z37.2 Twins, both liveborn
CPT/HCPCS: 36415; 85025; 86780; 86850; 86900; 86901; 90686; 90707; 94664; 99212